=== PATIENT | female | born 2000 | race Caucasian/White ===

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

== ENCOUNTER 2022-04-26 09:00 | Emergency (ER) | payer BC ==
[~2022-04-26] VITALS: Ht 162.6 cm; Wt 52.2 kg
[2022-04-26 09:05] VITALS: BP_SYST 130
--- NOTE | 2022-04-26 09:09 | NUR ---
Placed in room 01 . Placed on aircraft sheet metal mechanic, blood pressure machine and pulse oximeter. To gown for exam. Side rails up. Report given to CYDNEY QUACH.
--- NOTE | 2022-04-26 10:04 | NUR ---
PT RANJIT DROWSY, AOX4. NO SOB OR DISTRESS. PT FAMILY CALLED 911 FOR FENTENYL OVERDOSE AT HOME. FAMILY STATED THEY ADMINISTERED 4MG OF NARCAN. O2 SAY 99% RA.
--- NOTE | 2022-04-26 10:10 | NUR ---
MD DR PAULA AT BEDSIDE
[2022-04-26 12:36] VITALS: BP_SYST 130
--- NOTE | 2022-04-26 12:38 | NUR ---
Patient given written and verbal discharge instructions and verbalizes understanding. ER MD discussed with patient the results and treatment provided. Patient in stable condition. ID arm band removed. NO Rx given. Patient educated on pain management and to follow up with PMD. Pain Scale 0/10. Opportunity for questions provided and answered. Medication side effect fact sheet provided.
== END 2022-04-26 12:36 | disposition home or self-care (01) ==
LOC: SED 09:00
DX: T40.411A Poisoning by fentanyl or fentanyl analogs, accidental (unintentional), initial encounter (principal); Z79.899 Other long term (current) drug therapy; Y92.89 Other specified places as the place of occurrence of the external cause
CPT/HCPCS: 99281